=== PATIENT | male | born 1990 | race African-American/Black ===

== ENCOUNTER 2017-06-30 07:49 | Inpatient (IN) | payer SELFPAY ==
[2017-06-30 08:29] LABS: ANION GAP 11 (6-14); BLOOD UREA NITROGEN 13 mg/dL (8-26); BUN/CREATININE RATIO 10 (6-20); CALCIUM 9.8 mg/dL (8.5-10.1); CARBON DIOXIDE 25 mmol/L (21-32); CHLORIDE 101 mmol/L (98-107); CREATININE 1.3 mg/dL (0.7-1.3); GFR 79.5; GLUCOSE 154 mg/dL (70-99); POTASSIUM 3.1 mmol/L (3.5-5.1); SODIUM 137 mmol/L (136-145)
[2017-06-30 08:35] LABS: ALBUMIN 4.2 g/dL (3.4-5.0); ALBUMIN/GLOBULIN RATIO 0.9 (1.0-1.7); ALK PHOS 84 U/L (46-116); ALT (SGPT) 24 U/L (16-63); AST (SGOT) 21 U/L (15-37); LIPASE 168 U/L (73-393); MAGNESIUM 1.5 mg/dL (1.8-2.4); TOTAL BILIRUBIN 0.3 mg/dL (0.2-1.0); TOTAL PROTEIN 8.7 g/dL (6.4-8.2)
[2017-06-30] MEDS: ONDANSETRON PF 4 MG/2 ML VIAL. IV ×2 (08:35→15:45)
[2017-06-30] MEDS: PANTOPRAZOLE IV PUSH 40 MG VIAL. IVP (08:36)
[2017-06-30] MEDS: MORPHINE SULFATE 4 MG/ML DISP.SYRIN. IV/SQ (08:36)
[2017-06-30] MEDS: IV NORMAL SALINE 1000ML BAG 1,000 ML IV ×2 (08:36→11:00)
[2017-06-30 08:39] LABS: TROPONINI < 0.017 ng/mL (0.000-0.055)
[2017-06-30 08:43] LABS: NT-PRO BNP 58 pg/mL (0-124)
[2017-06-30 08:43] LABS: CKMB INDEX 0.2 % (0-4); CKMB MASS 0.5 ng/mL (0.0-3.6); CREATINE KINASE 291 U/L (39-308)
[2017-06-30] MEDS ORDERED: CONTRAST GIVEN MC (09:00)
[2017-06-30] MEDS: IOHEXOL 300 MG/ML 100ML VIAL. IV (09:07)
[2017-06-30] MEDS: POTASSIUM CHLORIDE 20 MEQ TABLET.ER. PO ×2 (09:34→13:48)
[2017-06-30] MEDS: fentaNYL PF VIAL 100 MCG/2 ML VIAL IV ×5 (09:36→23:05)
[2017-06-30 09:49] LABS: BILIRUBIN,URINE NEGATIVE (NEG); CLARITY,URINE CLEAR; COLOR,URINE YELLOW; GLUCOSE,URINE NEGATIVE (NEG); NITRITE,URINE NEGATIVE (NEG); PH,URINE 7.5; PROTEIN,URINE NEGATIVE (NEG-TRACE); UROBILINOGEN,URINE 0.2 mg/dL (0.2 mg/dL)
[2017-06-30 09:53] LABS: ADD MAN DIFF? NO
[2017-06-30 09:55] LABS: BASO % 1 % (0-3); EOS % 0 % (0-3); HEMATOCRIT 45.1 % (39.0-53.0); HEMOGLOBIN 15.4 g/dL (13.0-17.5); LYMPH # 0.8 x10^3/uL (1.0-4.8); LYMPH % 13 % (24-48); MEAN CORPUSCULAR HEMOGLOBIN 33 pg (25-35); MEAN CORPUSCULAR HGB CONC 34 g/dL (31-37); MEAN CORPUSCULAR VOLUME 96 fL (79-100); MONO # 0.3 x10^3/uL (0.0-1.1); MONO % 5 % (0-9); NEUT # 4.7 x10^3uL (1.8-7.7); NEUT % 82 % (31-73); PLATELET COUNT 176 x10^3/uL (140-400); RED CELL DISTRIBUTION WIDTH 12.6 % (11.5-14.5); WHITE BLOOD COUNT 5.7 x10^3/uL (4.0-11.0)
[2017-06-30 09:57] LABS: BACTERIA,URINE 0 /HPF (0-FEW); RBC,URINE 0 /HPF (0-2); SQUAMOUS EPITHELIAL CELL,UR OCC /LPF; WBC,URINE OCC /HPF (0-4)
[2017-06-30 10:01] LABS: BARBITURATES NEG (NEG); BENZODIAZEPINES NEG (NEG); CANNABINOIDS POS (NEG); COCAINE NEG (NEG); METHADONE NEG (NEG); OPIATES POS (NEG); PHENCYCLIDINE NEG (NEG)
[2017-06-30 10:04] LABS: AMPHETAMINE/METHAMPHETAMINE NEG (NEG); ETHANOL, URINE NEG (NEG); INR 1.1 (0.8-1.1); PROTHROMBIN TIME PATIENT 13.7 SEC (11.7-14.0)
[2017-06-30] MEDS: LISINOPRIL 10 MG TABLET PO ×2 (10:48→13:49)
[2017-06-30] MEDS: hydrALAZINE 20 MG/ML VIAL. IVP ×2 (11:39→14:06)
[2017-06-30] MEDS ORDERED: LABETALOL 20 MG/4 ML DISP.SYRIN. IVP (12:00)
[2017-06-30] MEDS: amLODIPine BESYLATE 5 MG TABLET PO (12:00)
[2017-06-30] MEDS: POTASSIUM CL 20MEQ D5-0.45NACL 1,000 ML IV ×2 (12:59→23:05)
[2017-06-30] MEDS: MAGNESIUM SULFATE 2GM 50 ML IV (13:48)
[2017-06-30 14:00] LABS: CHOLESTEROL 126 mg/dL (0-200); HDLC 36 mg/dL (40-60); LDLC 74 mg/dL (0-100); NON-HDL CHOLESTEROL 90 mg/dL (0-129); TRIGLYCERIDES 81 mg/dL (0-150); VLDLC 16 mg/dL (0-40)
[2017-06-30 14:05] LABS: CHOLESTEROL/HDL RATIO 3.5
[2017-07-01] MEDS: fentaNYL PF VIAL 100 MCG/2 ML VIAL IV ×5 (02:03→20:59)
[2017-07-01] MEDS: ONDANSETRON PF 4 MG/2 ML VIAL. IV ×2 (02:09→14:51)
[2017-07-01 07:11] LABS: BASO % 0 % (0-3); EOS % 0 % (0-3); HEMATOCRIT 46.3 % (39.0-53.0); HEMOGLOBIN 16.1 g/dL (13.0-17.5); LYMPH # 0.7 x10^3/uL (1.0-4.8); LYMPH % 9 % (24-48); MEAN CORPUSCULAR HEMOGLOBIN 33 pg (25-35); MEAN CORPUSCULAR HGB CONC 35 g/dL (31-37); MEAN CORPUSCULAR VOLUME 95 fL (79-100); MONO # 0.4 x10^3/uL (0.0-1.1); MONO % 5 % (0-9); NEUT # 7.4 x10^3uL (1.8-7.7); NEUT % 86 % (31-73); PLATELET COUNT 187 x10^3/uL (140-400); RED BLOOD COUNT 4.87 x10^6/uL (4.30-5.70); RED CELL DISTRIBUTION WIDTH 13.2 % (11.5-14.5); WHITE BLOOD COUNT 8.5 x10^3/uL (4.0-11.0)
[2017-07-01 07:14] LABS: ADD MAN DIFF? YES
[2017-07-01 07:34] LABS: ALBUMIN 4.2 g/dL (3.4-5.0); ALBUMIN/GLOBULIN RATIO 0.9 (1.0-1.7); ALK PHOS 74 U/L (46-116); ALT (SGPT) 22 U/L (16-63); AMYLASE 107 U/L (25-115); ANION GAP 10 (6-14); AST (SGOT) 17 U/L (15-37); BLOOD UREA NITROGEN 7 mg/dL (8-26); BUN/CREATININE RATIO 8 (6-20); CALCIUM 9.1 mg/dL (8.5-10.1); CARBON DIOXIDE 26 mmol/L (21-32); CHLORIDE 99 mmol/L (98-107); CREATININE 0.9 mg/dL (0.7-1.3); GFR 121.6; GLUCOSE 133 mg/dL (70-99); LIPASE 264 U/L (73-393); POTASSIUM 4.2 mmol/L (3.5-5.1); SODIUM 135 mmol/L (136-145); TOTAL BILIRUBIN 0.4 mg/dL (0.2-1.0); TOTAL PROTEIN 9.1 g/dL (6.4-8.2)
[2017-07-01] MEDS: PANTOPRAZOLE IV PUSH 40 MG VIAL. IVP (08:06)
[2017-07-01] MEDS: POTASSIUM CL 20MEQ D5-0.45NACL 1,000 ML IV ×3 (08:07→20:58)
[2017-07-01] MEDS: amLODIPine BESYLATE 5 MG TABLET PO (09:00)
[2017-07-01] MEDS: LISINOPRIL 20 MG TABLET PO (09:00)
[2017-07-01] MEDS: KETOROLAC 30 MG/ML INJ. IV (09:29)
[2017-07-01 11:20] LABS: % LYMPHS 8 % (24-48); % MONOS 5 % (0-10); % SEGS 87 % (35-66); PLT ESTIMATE ADEQUATE (ADEQUATE)
[2017-07-01] MEDS ORDERED: oxyCODONE/APAP 5/325 1 TAB TABLET PO (13:15)
[2017-07-01] MEDS ORDERED: fentaNYL PF VIAL 100 MCG/2 ML VIAL IV (13:15)
[2017-07-01] MEDS: hydrALAZINE 20 MG/ML VIAL. IVP (14:53)
[2017-07-02] MEDS: fentaNYL PF VIAL 100 MCG/2 ML VIAL IV ×2 (00:52→05:38)
[2017-07-02] MEDS: POTASSIUM CL 20MEQ D5-0.45NACL 1,000 ML IV ×2 (05:39→12:00)
[2017-07-02] MEDS: PANTOPRAZOLE 40 MG TABLET.DR. PO (09:44)
[2017-07-02] MEDS: POLYETHYLENE GLYCOL 3350 17 GM PACKET. PO (09:45)
[2017-07-02] MEDS: amLODIPine BESYLATE 5 MG TABLET PO (09:45)
[2017-07-02] MEDS: LISINOPRIL 20 MG TABLET PO (09:45)
== END 2017-07-02 17:21 | disposition home or self-care (01) | DRG 392 ==
LOC: ER 07:49 → 6 SOUTH 10:50
DX: R10.9 Unspecified abdominal pain (principal); E83.42 Hypomagnesemia; E87.6 Hypokalemia; F12.90 Cannabis use, unspecified, uncomplicated; I10 Essential (primary) hypertension; K21.9 Gastro-esophageal reflux disease without esophagitis; G89.29 Other chronic pain; E66.9 Obesity, unspecified; R94.31 Abnormal electrocardiogram [ECG] [EKG]; T40.4X5A Adverse effect of other synthetic narcotics, initial encounter; Z79.899 Other long term (current) drug therapy; Z82.49 Family history of ischemic heart disease and other diseases of the circulatory system; Z90.49 Acquired absence of other specified parts of digestive tract; Z68.30 Body mass index [BMI] 30.0-30.9, adult; Z86.718 Personal history of other venous thrombosis and embolism; Z79.01 Long term (current) use of anticoagulants; Y92.89 Other specified places as the place of occurrence of the external cause
CPT/HCPCS: 36415; 71045; 74177; 76700; 78264; 80053; 80061; 80307; 81001; 82150; 82553; 83690; 83735; 83880; 84443; 84484; 85007; 85025; 85610; 93005; 93306; 96361; 96374; 96375; 99285; 99285-25; A9541; C9113; J0360; J1885; J2270; J2405; J3010; J3475; J7030; Q9967

== ENCOUNTER 2017-12-24 10:30 | Emergency (ER) | payer SELFPAY ==
[~2017-12-24] VITALS: Ht 182.9 cm; Wt 92.1 kg
[~2017-12-24 10:30] MED LIST: AMLO5TAB7 PO; LISI10TA2 PO; POLY17PO29 PO
[2017-12-24] MEDS ORDERED: FAMOTIDINE 20 MG/2 ML VIAL IVP ONE (11:00)
[2017-12-24] MEDS ORDERED: MECLIZINE HCL 12.5 MG TABLET. PO ONE (11:00)
[2017-12-24] MEDS ORDERED: ONDANSETRON PF 4 MG/2 ML VIAL. IV ONE (11:00)
[2017-12-24] MEDS ORDERED: IV NORMAL SALINE 1000ML BAG 1,000 ML IV ONE (11:00)
[2017-12-24] MEDS ORDERED: DICYCLOMINE HCL 10 MG CAPSULE PO ONE (11:00)
[2017-12-24 11:13] LABS: BASO % 1 % (0-3); EOS % 0 % (0-3); HEMATOCRIT 40.4 % (39.0-53.0); HEMOGLOBIN 14.2 g/dL (13.0-17.5); LYMPH # 0.7 x10^3/uL (1.0-4.8); LYMPH % 16 % (24-48); MEAN CORPUSCULAR HEMOGLOBIN 33 pg (25-35); MEAN CORPUSCULAR HGB CONC 35 g/dL (31-37); MEAN CORPUSCULAR VOLUME 94 fL (79-100); MONO # 0.5 x10^3/uL (0.0-1.1); MONO % 12 % (0-9); NEUT # 2.9 x10^3uL (1.8-7.7); NEUT % 71 % (31-73); PLATELET COUNT 133 x10^3/uL (140-400); RED CELL DISTRIBUTION WIDTH 13.2 % (11.5-14.5)
[2017-12-24 11:23] LABS: CALCIUM 8.7 mg/dL (8.5-10.1); GFR 106.9; POTASSIUM 4.2 mmol/L (3.5-5.1)
[2017-12-24 11:29] LABS: ALBUMIN 3.8 g/dL (3.4-5.0); ALBUMIN/GLOBULIN RATIO 0.8 (1.0-1.7); TOTAL BILIRUBIN 0.2 mg/dL (0.2-1.0); TOTAL PROTEIN 8.4 g/dL (6.4-8.2)
--- NOTE | 2017-12-24 11:43 | RAD ---
Acute abdomen series with chest, 3 views, 12/24/2017: HISTORY: Headache, cough, nausea, chest pain The abdominal gas pattern is unremarkable without evidence of obstruction. No free air is present in the abdomen. Surgical clips are present in the right upper quadrant. No abnormal abdominal calcifications are seen. The heart size is normal. The lungs are clear. There is no evidence of pleural fluid. IMPRESSION: No acute abnormality is detected. Electronically signed by: Rupesh Vasquez MD (12/24/2017 11:40 AM) [facility]
--- NOTE | 2017-12-24 11:58 | PHYS DOC ---
Past Medical History Past Medical History: Constipation, DVT, Hypertension Past Surgical History: Cholecystectomy Alcohol Use: Occasionally Drug Use: Marijuana Adult General Chief Complaint Chief Complaint: DIZZY/LIGHT HEADED HPI HPI Patient is a 27 year old male with history of hypertension, constipation, DVT on the left lower extremity from a sports injury, who presents today complaining of dizziness worse when is moving around and stomach cramps that began 3 days ago. Patient is also complaining of intermittent episodes of chills. Denies fever. Denies any nausea vomiting. Denies any diarrhea. Denies any chance he is constipated. Review of Systems Review of Systems Constitutional: Denies fever or chills [] Eyes: Denies change in visual acuity, redness, or eye pain [] HENT: Denies nasal congestion or sore throat [] Respiratory: Denies cough or shortness of breath [] Cardiovascular: No additional information not addressed in HPI [] GI: Reports abdominal cramping, denies nausea, vomiting, bloody stools or diarrhea [] : Denies dysuria or hematuria [] Musculoskeletal: Denies back pain or joint pain [] Integument: Denies rash or skin lesions [] Neurologic: Reports dizziness. Denies headache, focal weakness or sensory changes [] All other systems were reviewed and found to be within normal limits, except as documented in this note. Current Medications Current Medications Current Medications Medications (Trade) Dose Ordered Sig/Sanaz Start Time Stop Time Status Last Admin Dose Admin Clonidine HCl (Catapres) 0.2 mg 1X ONCE 12/24/17 13:00 12/24/17 13:01 DC Dicyclomine HCl (Bentyl) 20 mg 1X ONCE 12/24/17 11:00 12/24/17 11:01 DC 12/24/17 11:56 20 MG Famotidine (Pepcid Vial) 20 mg 1X ONCE 12/24/17 11:00 12/24/17 11:01 DC 12/24/17 11:55 20 MG Meclizine HCl (Antivert) 25 mg 1X ONCE 12/24/17 11:00 12/24/17 11:01 DC 12/24/17 11:57 25 MG Ondansetron HCl (Zofran) 4 mg 1X ONCE 12/24/17 11:00 12/24/17 11:01 DC 12/24/17 11:54 4 MG Sodium Chloride 1,000 ml @ 1,000 mls/hr 1X ONCE 12/24/17 11:00 12/24/17 11:59 DC 12/24/17 11:53 1,000 MLS/HR Allergies Allergies Allergies Coded Allergies Type Severity Reaction Last Updated Verified No Known Drug Allergies 02/25/17 No Physical Exam Physical Exam Constitutional: Well developed, well nourished, no acute distress, non-toxic appearance. [] HENT: Normocephalic, atraumatic, bilateral external ears normal, oropharynx moist, no oral exudates, nose normal. [] Eyes: PERRLA, EOMI, conjunctiva normal, no discharge. [] Neck: Normal range of motion, no tenderness, supple, no stridor. [] Cardiovascular:Heart rate regular rhythm, no murmur [] Lungs & Thorax: Bilateral breath sounds clear to auscultation [] Abdomen: Bowel sounds normal, soft, no tenderness, no masses, no pulsatile masses. [] Skin: Warm, dry, no erythema, no rash. [] Back: No tenderness, no CVA tenderness. [] Extremities: No tenderness, no cyanosis, no clubbing, ROM intact, no edema. [] Neurologic: Alert and oriented X 3, normal motor function, normal sensory function, no focal deficits noted. Cranial nerves II through XII intact Psychologic: Affect normal, judgement normal, mood normal. [] Current Patient Data Vital Signs Vital Signs Date Time Temp Pulse Resp B/P (MAP) Pulse Ox O2 Delivery O2 Flow Rate FiO2 12/24/17 10:50 98.8 88 12 166/108 (127) 96 Room Air 98.8 Lab Values Laboratory Tests Test 12/24/17 11:04 12/24/17 12:30 White Blood Count 4.0 x10^3/uL (4.0-11.0) Red Blood Count 4.30 x10^6/uL (4.30-5.70) Hemoglobin 14.2 g/dL (13.0-17.5) Hematocrit 40.4 % (39.0-53.0) Mean Corpuscular Volume 94 fL (79-100) Mean Corpuscular Hemoglobin 33 pg (25-35) Mean Corpuscular Hemoglobin Concent 35 g/dL (31-37) Red Cell Distribution Width 13.2 % (11.5-14.5) Platelet Count 133 x10^3/uL (140-400) L Neutrophils (%) (Auto) 71 % (31-73) Lymphocytes (%) (Auto) 16 % (24-48) L Monocytes (%) (Auto) 12 % (0-9) H Eosinophils (%) (Auto) 0 % (0-3) Basophils (%) (Auto) 1 % (0-3) Neutrophils # (Auto) 2.9 x10^3uL (1.8-7.7) Lymphocytes # (Auto) 0.7 x10^3/uL (1.0-4.8) L Monocytes # (Auto) 0.5 x10^3/uL (0.0-1.1) Eosinophils # (Auto) 0.0 x10^3/uL (0.0-0.7) Basophils # (Auto) 0.0 x10^3/uL (0.0-0.2) Sodium Level 140 mmol/L (136-145) Potassium Level 4.2 mmol/L (3.5-5.1) Chloride Level 104 mmol/L (98-107) Carbon Dioxide Level 27 mmol/L (21-32) Anion Gap 9 (6-14) Blood Urea Nitrogen 8 mg/dL (8-26) Creatinine 1.0 mg/dL (0.7-1.3) Estimated GFR (Cockcroft-Gault) 106.9 BUN/Creatinine Ratio 8 (6-20) Glucose Level 94 mg/dL (70-99) Calcium Level 8.7 mg/dL (8.5-10.1) Total Bilirubin 0.2 mg/dL (0.2-1.0) Aspartate Amino Transferase (AST) 21 U/L (15-37) Alanine Aminotransferase (ALT) 34 U/L (16-63) Alkaline Phosphatase 81 U/L (46-116) Troponin I Quantitative < 0.017 ng/mL (0.000-0.055) Total Protein 8.4 g/dL (6.4-8.2) H Albumin 3.8 g/dL (3.4-5.0) Albumin/Globulin Ratio 0.8 (1.0-1.7) L Lipase 225 U/L (73-393) Urine Collection Type Unknown Urine Color Yellow Urine Clarity Clear Urine pH 6.5 Urine Specific [place] 1.020 Urine Protein Negative mg/dL (NEG-TRACE) Urine Glucose (UA) Negative mg/dL (NEG) Urine Ketones (Stick) Negative mg/dL (NEG) Urine Blood Negative (NEG) Urine Nitrite Negative (NEG) Urine Bilirubin Negative (NEG) Urine Urobilinogen Dipstick 0.2 mg/dL (0.2 mg/dL) Urine Leukocyte Esterase Negative (NEG) Urine RBC 1-2 /HPF (0-2) Urine WBC Occ /HPF (0-4) Urine Squamous Epithelial Cells Occ /LPF Urine Bacteria 0 /HPF (0-FEW) Urine Mucus Mod /LPF Urine Opiates Screen Neg (NEG) Urine Methadone Screen Neg (NEG) Urine Barbiturates Neg (NEG) Urine Phencyclidine Screen Neg (NEG) Urine Amphetamine/Methamphetamine Neg (NEG) Urine Benzodiazepines Screen Neg (NEG) Urine Cocaine Screen Neg (NEG) Urine Cannabinoids Screen Pos (NEG) Urine Ethyl Alcohol Neg (NEG) Laboratory Tests 12/24/17 11:04 Laboratory Tests 12/24/17 11:04 EKG EKG 11:[address] Terrazas sinus rhythm HR 75 no STEMI [] Radiology/Procedures Radiology/Procedures []PROCEDURE: ACUTE ABDOMEN SERIES Acute abdomen series with chest, 3 views, 12/24/2017: HISTORY: Headache, cough, nausea, chest pain The abdominal gas pattern is unremarkable without evidence of obstruction. No free air is present in the abdomen. Surgical clips are present in the right upper quadrant. No abnormal abdominal calcifications are seen. The heart size is normal. The lungs are clear. There is no evidence of pleural fluid. IMPRESSION: No acute abnormality is detected. Electronically signed by: Rupesh Vasquez MD (12/24/2017 11:40 AM) [facility] DICTATED and SIGNED BY: RUPESH VASQUEZ MD DATE: 12/24/17 6674 Course & Med Decision Making Course & Med Decision Making Pertinent Labs and Imaging studies reviewed. (See chart for details) This is a 27-year-old male patient presenting to the ED today with complaints of dizziness, abdominal cramping and chills that began 3 days ago. CBC with normal WBC, CMP would not acute findings. EKG was negative, troponin is normal, acute abdominal series normal. UA negative. + for marijuana use. Blood pressure was running high at 166/108 on arrival with a heart rate of 88, patient has history of hypertension, he states he took his lisinopril this morning. Clonidine was ordered in the ED. IV fluids were given, meclizine patient feeling better. Discharged with instructions to follow-up with the PCP as soon as he can. Discharged with dicyclomine and meclizine. Dragon Disclaimer Dragon Disclaimer This electronic medical record was generated, in whole or in part, using a voice recognition dictation system. Departure Departure Impression: Primary Impression: Chronic generalized abdominal pain Additional Impressions: Accelerated hypertension Dizziness Disposition: HOME, SELF-CARE Condition: STABLE Referrals: NO PCP (PCP) LJ PAINTER MD follow up in 1 week Patient Instructions: Abdominal Pain (Nonspecific), Dizziness, [id number], Hypertension Additional Instructions: You were evaluated in the emergency room, please take the prescribed medications as ordered. Follow-up with your doctor in 1-2 weeks. Push fluids. Rest. Come back to the ED at any point symptoms. Scripts Ondansetron (ZOFRAN ODT) 4 Mg Tab.rapdis 1 TAB SL Q8HRS, #15 TAB Prov: ABIMBOLA BRYSON APRN 12/24/17 Dicyclomine Hcl (DICYCLOMINE HCL) 20 Mg Tablet 1 TAB PO TID, #30 TAB 1 Refill Prov: ABIMBOLA BRYSON APRN 12/24/17 Problem Qualifiers ABIMBOLA BRYSON APRN Dec 24, 2017 11:58
[2017-12-24 12:42] LABS: BILIRUBIN,URINE NEGATIVE (NEG); CLARITY,URINE CLEAR; COLOR,URINE YELLOW; NITRITE,URINE NEGATIVE (NEG); PH,URINE 6.5; PROTEIN,URINE NEGATIVE (NEG-TRACE); UROBILINOGEN,URINE 0.2 mg/dL (0.2 mg/dL)
[2017-12-24 12:51] LABS: BARBITURATES NEG (NEG); BENZODIAZEPINES NEG (NEG); CANNABINOIDS POS (NEG); COCAINE NEG (NEG); METHADONE NEG (NEG); OPIATES NEG (NEG); PHENCYCLIDINE NEG (NEG)
[2017-12-24 12:54] LABS: AMPHETAMINE/METHAMPHETAMINE NEG (NEG)
[2017-12-24 12:58] LABS: BACTERIA,URINE 0 /HPF (0-FEW); SQUAMOUS EPITHELIAL CELL,UR OCC /LPF; WBC,URINE OCC /HPF (0-4)
[2017-12-24] MEDS ORDERED: cloNIDine HCL 0.1 MG TABLET PO ONE (13:00)
[2017-12-24] MEDS ORDERED: DICY20TA3 PO (13:12)
[2017-12-24] MEDS ORDERED: ONDA4TAB10 SL (13:12)
[2017-12-24 13:35] VITALS: BP 137/71
--- NOTE | 2017-12-24 16:32 | EKG ---
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
== END 2017-12-24 13:47 | disposition home or self-care (01) ==
LOC: ER 10:30
DX: G89.29 Other chronic pain (principal); R10.84 Generalized abdominal pain; R42 Dizziness and giddiness; I10 Essential (primary) hypertension; Z86.718 Personal history of other venous thrombosis and embolism; Z90.49 Acquired absence of other specified parts of digestive tract
CPT/HCPCS: 36415; 74022; 80053; 80307; 81001; 83690; 84484; 85025; 93005; 96361; 96374; 96375; 99285; J2405; J3490; J7030; J8597; G0479

== ENCOUNTER 2018-01-16 17:15 | Emergency (ER) | payer SELFPAY ==
[~2018-01-16] VITALS: Ht 172.7 cm; Wt 90.7 kg
[~2018-01-16 17:15] MED LIST changes: +DICY20TA3 PO; +ONDA4TAB10 SL
[2018-01-16 17:20] VITALS: BP 194/112
[2018-01-16] MEDS ORDERED: IV NORMAL SALINE 1000ML BAG 1,000 ML IV ONE ×2 (17:45→20:15)
[2018-01-16] MEDS ORDERED: FAMOTIDINE 20 MG/2 ML VIAL IVP ONE (17:45)
[2018-01-16] MEDS ORDERED: CONTRAST GIVEN. MC PRN (18:00)
--- NOTE | 2018-01-16 18:14 | PHYS DOC ---
Past Medical History Past Medical History: Constipation, DVT, Hypertension Past Surgical History: Cholecystectomy Alcohol Use: Occasionally Drug Use: Marijuana Adult General Chief Complaint Chief Complaint: ABDOMINAL PAIN HPI HPI Patient is a 27 year old male who presents with upper abdominal pain, nausea, vomiting since today after he ate a fried pork chop. Patient states that it is mid abdominal pain that is burning. Rates his pain a 10/10. Pmh is hypertension of which he takes lisinopril for. Patient's mother states that she gave him his medication today but she thinks he threw it up. Review of Systems Review of Systems Constitutional: Denies fever or chills [] Eyes: Denies change in visual acuity, redness, or eye pain [] HENT: Denies nasal congestion or sore throat [] Respiratory: Denies cough or shortness of breath [] Cardiovascular: No additional information not addressed in HPI [] GI: Generalized burning abdominal pain, nausea, vomiting, and constipation. Denies bloody stools or diarrhea [] : Denies dysuria or hematuria [] Musculoskeletal: Denies back pain or joint pain [] Integument: Denies rash or skin lesions [] Neurologic: Denies headache, focal weakness or sensory changes [] Endocrine: Denies polyuria or polydipsia [] All other systems were reviewed and found to be within normal limits, except as documented in this note. Current Medications Current Medications Current Medications Medications (Trade) Dose Ordered Sig/Sanaz Start Time Stop Time Status Last Admin Dose Admin Famotidine (Pepcid Vial) 20 mg 1X ONCE 01/16/18 17:45 01/16/18 17:46 DC 01/16/18 18:20 20 MG Fentanyl Citrate (Fentanyl 2ml Vial) 50 mcg 1X ONCE 01/16/18 20:45 01/16/18 20:46 DC 01/16/18 20:38 50 MCG Info (CONTRAST GIVEN -- Rx MONITORING) 1 each PRN DAILY PRN 01/16/18 18:00 01/18/18 17:59 Iohexol (Omnipaque 300 Mg/ml) 75 ml 1X ONCE 01/16/18 18:15 01/16/18 18:16 DC 01/16/18 18:15 75 ML Ondansetron HCl (Zofran) 4 mg 1X ONCE 01/16/18 19:30 01/16/18 19:31 DC Sodium Chloride 1,000 ml @ 1,000 mls/hr 1X ONCE 01/16/18 20:15 01/16/18 21:14 01/16/18 20:37 1,000 MLS/HR Allergies Allergies Allergies Coded Allergies Type Severity Reaction Last Updated Verified No Known Drug Allergies 02/25/17 No Physical Exam Physical Exam Constitutional: Well developed, well nourished, no acute distress, non-toxic appearance. [] HENT: Normocephalic, atraumatic, bilateral external ears normal, oropharynx moist, no oral exudates, nose normal. [] Eyes: PERRLA, EOMI, conjunctiva normal, no discharge. [] Neck: Normal range of motion, no tenderness, supple, no stridor. [] Cardiovascular:Heart rate regular rhythm, no murmur [] Lungs & Thorax: Bilateral breath sounds clear to auscultation [] Abdomen: Bowel sounds normal, soft, generalized tenderness, no masses, no pulsatile masses. [] Skin: Warm, dry, no erythema, no rash. [] Back: No tenderness, no CVA tenderness. [] Extremities: No tenderness, no cyanosis, no clubbing, ROM intact, no edema. [] Neurologic: Alert and oriented X 3, normal motor function, normal sensory function, no focal deficits noted. [] Psychologic: Affect normal, judgement normal, mood normal. [] Current Patient Data Vital Signs Vital Signs Date Time Temp Pulse Resp B/P (MAP) Pulse Ox O2 Delivery O2 Flow Rate FiO2 01/16/18 18:50 16 97 Room Air 01/16/18 17:20 98.2 60 194/112 (139) 98.2 Lab Values Laboratory Tests Test 01/16/18 18:30 01/16/18 19:30 White Blood Count 7.7 x10^3/uL (4.0-11.0) Red Blood Count 4.74 x10^6/uL (4.30-5.70) Hemoglobin 15.5 g/dL (13.0-17.5) Hematocrit 43.7 % (39.0-53.0) Mean Corpuscular Volume 92 fL (79-100) Mean Corpuscular Hemoglobin 33 pg (25-35) Mean Corpuscular Hemoglobin Concent 35 g/dL (31-37) Red Cell Distribution Width 12.7 % (11.5-14.5) Platelet Count 205 x10^3/uL (140-400) Neutrophils (%) (Auto) 87 % (31-73) H Lymphocytes (%) (Auto) 8 % (24-48) L Monocytes (%) (Auto) 4 % (0-9) Eosinophils (%) (Auto) 0 % (0-3) Basophils (%) (Auto) 0 % (0-3) Neutrophils # (Auto) 6.7 x10^3uL (1.8-7.7) Lymphocytes # (Auto) 0.6 x10^3/uL (1.0-4.8) L Monocytes # (Auto) 0.3 x10^3/uL (0.0-1.1) Eosinophils # (Auto) 0.0 x10^3/uL (0.0-0.7) Basophils # (Auto) 0.0 x10^3/uL (0.0-0.2) Segmented Neutrophils % 80 % (35-66) H Band Neutrophils % 3 % (0-9) Lymphocytes % 10 % (24-48) L Monocytes % 7 % (0-10) Platelet Estimate Adequate (ADEQUATE) Sodium Level 140 mmol/L (136-145) Potassium Level 3.6 mmol/L (3.5-5.1) Chloride Level 103 mmol/L (98-107) Carbon Dioxide Level 24 mmol/L (21-32) Anion Gap 13 (6-14) Blood Urea Nitrogen 11 mg/dL (8-26) Creatinine 1.1 mg/dL (0.7-1.3) Estimated GFR (Cockcroft-Gault) 95.8 BUN/Creatinine Ratio 10 (6-20) Glucose Level 161 mg/dL (70-99) H Calcium Level 9.3 mg/dL (8.5-10.1) Total Bilirubin 0.4 mg/dL (0.2-1.0) Aspartate Amino Transferase (AST) 19 U/L (15-37) Alanine Aminotransferase (ALT) 24 U/L (16-63) Alkaline Phosphatase 69 U/L (46-116) Troponin I Quantitative < 0.017 ng/mL (0.000-0.055) Total Protein 8.8 g/dL (6.4-8.2) H Albumin 4.0 g/dL (3.4-5.0) Albumin/Globulin Ratio 0.8 (1.0-1.7) L Lipase 94 U/L (73-393) Urine Collection Type Unknown Urine Color Yellow Urine Clarity Clear Urine pH 7.5 Urine Specific [place] >=1.030 Urine Protein 100 mg/dL (NEG-TRACE) Urine Glucose (UA) 100 mg/dL (NEG) Urine Ketones (Stick) >=80 mg/dL (NEG) Urine Blood Negative (NEG) Urine Nitrite Negative (NEG) Urine Bilirubin Negative (NEG) Urine Urobilinogen Dipstick 0.2 mg/dL (0.2 mg/dL) Urine Leukocyte Esterase Negative (NEG) Urine RBC 6-10 /HPF (0-2) Urine WBC 1-4 /HPF (0-4) Urine Transitional Epithelial Cells Occ /LPF Urine Bacteria 0 /HPF (0-FEW) Urine Mucus Marked /LPF Urine Opiates Screen Neg (NEG) Urine Methadone Screen Neg (NEG) Urine Barbiturates Neg (NEG) Urine Phencyclidine Screen Neg (NEG) Urine Amphetamine/Methamphetamine Neg (NEG) Urine Benzodiazepines Screen Neg (NEG) Urine Cocaine Screen Neg (NEG) Urine Cannabinoids Screen Pos (NEG) Urine Ethyl Alcohol Neg (NEG) Laboratory Tests 01/16/18 18:30 Laboratory Tests 01/16/18 18:30 EKG EKG Sinus Rhythm, no STEMI Interpretation Time: 1749 Radiology/Procedures Radiology/Procedures CT abdomen pelvis[] Impressions: [facility] [address] [place] [address] IMAGING REPORT Signed PATIENT: BRISA DONAHUE ACCOUNT: [id number] : 1990 LOCATION: ER AGE: 27 SEX: M EXAM STATUS: REG ER ORD. PHYSICIAN: BRANDI PARTIDA APRN REASON: GENERALIZED ABDOMINAL PAIN, [place], VOMITING, CONSTIPATION PROCEDURE: CT ABD PELV W/ IV CONTRST ONLY Exam performed: CT scan of the abdomen and pelvis with contrast Clinical Indication: Abdominal pain and constipation with vomiting Date of Service: 01/16/2018 no priors Technique: Contiguous helical acquisitions are obtained from the lung bases to the pelvis during intravenous administration of [75 cc of Omnipaque 300]. In addition oral contrast was also given. Sagittal and coronal reformatted images were obtained and reviewed. CT abdomen findings: The lung bases appear essentially clear. Visualized heart is normal The liver, spleen and pancreas appears unremarkable. Cholecystectomy. Both adrenal glands and bilateral kidneys appear normal with symmetric excretion of contrast via both kidneys. The small bowel loops appear nondilated and unremarkable. Aorta is normal in caliber. There is no retroperitoneal lymphadenopathy or mass lesions. No bowel related inflammatory stranding is noted. No obvious stranding is seen in the pericecal region. CT pelvis findings: The pelvic bowel loops are nondilated and unremarkable. The urinary bladder is well distended and normal . Prostate gland and seminal vesicles appears normal. Interrogation of bone windows demonstrates no obvious bony abnormality. Sagittal and coronal reformatted images were obtained and reviewed which demonstrate no additional findings. Impression abdomen and pelvis : 1. No acute intra-abdominal or pelvic process is detected. PQRS Compliance Statement: One or more of the following individualized dose reduction techniques were utilized for this examination: 1. Automated exposure control 2. Adjustment of the mA and/or kV according to patient size 3. Use of iterative reconstruction technique Electronically signed by: Hollie Lucio MD (01/16/2018 9:00 PM) [facility] DICTATED and SIGNED BY: HOLLIE LUCIO MD DATE: 01/16/182054 Course & Med Decision Making Course & Med Decision Making Patient is a 27 year old male who presents with upper abdominal pain, nausea, vomiting since today after he ate a fried pork chop. Patient states that it is mid abdominal pain that is burning. Rates his pain a 10/10. Pmh is hypertension of which he takes lisinopril for. Patient's mother states that she gave him his medication today but she thinks he threw it up. There is no blood in his vomit only bile. Patient is asked questions he does not speak he will shake his head but mother answers all questions for him. Mother states the patient takes only lisinopril and has no known drug allergies. Patient doesn't do any drinking or smoke cigarettes but does smoke marijuana. Patient mother states that the patient has constipation and this a.m. he had a bowel movement but was hard and he had to push it out. Patient states he has dysuria symptoms. Abdomen is soft with generalized tenderness. Lungs are clear to auscultation in all lobes and heart rate is regular without murmur. Blood pressure is 194/112. He is alert and oriented. Skin is pink warm and dry. No extremity swelling. Patient is given a normal saline bolus, Zofran, Pepcid, fentanyl in the ED. 1914: Patient vomiting green bile again is given another 4 mg of Zofran. Blood work is unremarkable. 2106: CT ABD PELV shows no acute findings. Patient will be discharged with gastritis. He will get a prescription for Pepcid and ondansetron. Dragon Disclaimer Dragon Disclaimer This electronic medical record was generated, in whole or in part, using a voice recognition dictation system. Departure Departure Impression: Primary Impression: Gastritis Disposition: HOME, SELF-CARE Condition: STABLE Referrals: NO PCP (PCP) Patient Instructions: Gastritis, Adult Additional Instructions: Take Medications as directed. Follow up with your primary care. Do not eat heavy or greasy foods. Eat soft non spicy or fried foods and slowly increase your diet to solid foods. Scripts Sucralfate (CARAFATE) 1 Gm Tablet 1 GM PO TID for 7 Days, #21 TAB Prov: BRANDI PARTIDA VP CLIENT SERVICES 01/16/18 Famotidine (PEPCID) 20 Mg Tablet 20 MG PO BID for 7 Days, #14 TAB Prov: BRANDI PARTIDA APRN 01/16/18 Ondansetron (ONDANSETRON ODT) 4 Mg Tab.rapdis 1 TAB PO PRN Q6-8HRS, #16 TAB Prov: BRANDI PARTIDA APRN 01/16/18 Problem Qualifiers Primary Impression: Gastritis Gastritis type: unspecified gastritis Chronicity: acute Gastritis bleeding : without bleeding Qualified Codes: K29.00 - Acute gastritis without bleeding BRANDI PARTIDA VP CLIENT SERVICES Jan 16, 2018 18:14
[2018-01-16] MEDS ORDERED: fentaNYL PF VIAL 100 MCG/2 ML VIAL IV ONE ×2 (18:15→20:45)
[2018-01-16] MEDS ORDERED: ONDANSETRON PF 4 MG/2 ML VIAL. IV ONE ×3 (18:15→19:30)
[2018-01-16] MEDS ORDERED: IOHEXOL 300 MG/ML 100ML VIAL. IV ONE (18:15)
[2018-01-16 18:50] LABS: CALCIUM 9.3 mg/dL (8.5-10.1); CREATININE 1.1 mg/dL (0.7-1.3); GFR 95.8; POTASSIUM 3.6 mmol/L (3.5-5.1)
[2018-01-16 18:52] LABS: BASO % 0 % (0-3); EOS % 0 % (0-3); HEMATOCRIT 43.7 % (39.0-53.0); HEMOGLOBIN 15.5 g/dL (13.0-17.5); LYMPH # 0.6 x10^3/uL (1.0-4.8); LYMPH % 8 % (24-48); MEAN CORPUSCULAR HEMOGLOBIN 33 pg (25-35); MEAN CORPUSCULAR HGB CONC 35 g/dL (31-37); MEAN CORPUSCULAR VOLUME 92 fL (79-100); MONO # 0.3 x10^3/uL (0.0-1.1); MONO % 4 % (0-9); NEUT # 6.7 x10^3uL (1.8-7.7); NEUT % 87 % (31-73); PLATELET COUNT 205 x10^3/uL (140-400); RED BLOOD COUNT 4.74 x10^6/uL (4.30-5.70); RED CELL DISTRIBUTION WIDTH 12.7 % (11.5-14.5); WHITE BLOOD COUNT 7.7 x10^3/uL (4.0-11.0)
[2018-01-16 18:56] LABS: ALBUMIN/GLOBULIN RATIO 0.8 (1.0-1.7); TOTAL BILIRUBIN 0.4 mg/dL (0.2-1.0); TOTAL PROTEIN 8.8 g/dL (6.4-8.2)
[2018-01-16 19:39] LABS: BILIRUBIN,URINE NEGATIVE (NEG); CLARITY,URINE CLEAR; COLOR,URINE YELLOW; NITRITE,URINE NEGATIVE (NEG); PH,URINE 7.5; PROTEIN,URINE 100 mg/dL (NEG-TRACE); UROBILINOGEN,URINE 0.2 mg/dL (0.2 mg/dL)
[2018-01-16 19:46] LABS: AMPHETAMINE/METHAMPHETAMINE NEG (NEG); BARBITURATES NEG (NEG); BENZODIAZEPINES NEG (NEG); CANNABINOIDS POS (NEG); COCAINE NEG (NEG); METHADONE NEG (NEG); OPIATES NEG (NEG); PHENCYCLIDINE NEG (NEG)
[2018-01-16 19:51] LABS: BACTERIA,URINE 0 /HPF (0-FEW)
[2018-01-16 19:55] LABS: % BANDS 3 % (0-9); % LYMPHS 10 % (24-48); % MONOS 7 % (0-10); % SEGS 80 % (35-66); PLT ESTIMATE ADEQUATE (ADEQUATE)
--- NOTE | 2018-01-16 21:03 | RAD ---
Exam performed: CT scan of the abdomen and pelvis with contrast Clinical Indication: Abdominal pain and constipation with vomiting Date of Service: 01/16/2018 no priors Technique: Contiguous helical acquisitions are obtained from the lung bases to the pelvis during intravenous administration of [75 cc of Omnipaque 300]. In addition oral contrast was also given. Sagittal and coronal reformatted images were obtained and reviewed. CT abdomen findings: The lung bases appear essentially clear. Visualized heart is normal The liver, spleen and pancreas appears unremarkable. Cholecystectomy. Both adrenal glands and bilateral kidneys appear normal with symmetric excretion of contrast via both kidneys. The small bowel loops appear nondilated and unremarkable. Aorta is normal in caliber. There is no retroperitoneal lymphadenopathy or mass lesions. No bowel related inflammatory stranding is noted. No obvious stranding is seen in the pericecal region. CT pelvis findings: The pelvic bowel loops are nondilated and unremarkable. The urinary bladder is well distended and normal . Prostate gland and seminal vesicles appears normal. Interrogation of bone windows demonstrates no obvious bony abnormality. Sagittal and coronal reformatted images were obtained and reviewed which demonstrate no additional findings. Impression abdomen and pelvis : 1. No acute intra-abdominal or pelvic process is detected. PQRS Compliance Statement: One or more of the following individualized dose reduction techniques were utilized for this examination: 1. Automated exposure control 2. Adjustment of the mA and/or kV according to patient size 3. Use of iterative reconstruction technique Electronically signed by: Hollie Lucio MD (01/16/2018 9:00 PM) [facility]
[2018-01-16] MEDS ORDERED: ONDA4TAB12 PO (21:15)
[2018-01-16] MEDS ORDERED: SUCR1TAB35 PO (21:15)
[2018-01-16] MEDS ORDERED: FAMO-63 PO (21:15)
[2018-01-16] MEDS ORDERED: ONDANSETRON ODT 4 MG TAB.RAPDIS. ONE (21:45)
[2018-01-16] MEDS ORDERED: ONDANSETRON ODT 4 MG TAB.RAPDIS. PO ONE (22:00)
--- NOTE | 2018-01-17 10:36 | EKG ---
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
== END 2018-01-16 21:58 | disposition home or self-care (01) ==
LOC: ER 17:15
DX: K29.00 Acute gastritis without bleeding (principal); I10 Essential (primary) hypertension; K59.00 Constipation, unspecified; Z86.718 Personal history of other venous thrombosis and embolism; Z90.49 Acquired absence of other specified parts of digestive tract
CPT/HCPCS: 36415; 74177; 80053; 80307; 81001; 83690; 84484; 85007; 85025; 93005; 96361; 96374; 96375; 96376; 99285; J2405; J3010; J3490; J7030; Q0162; Q9967

== ENCOUNTER 2018-06-02 09:27 | Emergency (ER) | payer OTHER ==
[~2018-06-02] VITALS: Ht 175.3 cm; Wt 88.5 kg
[~2018-06-02 09:27] MED LIST changes: +AMLO5TAB10 PO; -AMLO5TAB7 PO; +FAMO-63 PO; +ONDA4TAB12 PO; +SUCR1TAB35 PO
[2018-06-02] MEDS ORDERED: ONDANSETRON PF 4 MG/2 ML VIAL. ONE (09:56)
[2018-06-02] MEDS ORDERED: ONDANSETRON PF 4 MG/2 ML VIAL. IV ONE ×2 (10:15)
[2018-06-02] MEDS ORDERED: FAMOTIDINE 20 MG/2 ML VIAL IVP ONE (10:15)
[2018-06-02] MEDS ORDERED: IV NORMAL SALINE 1000ML BAG 1,000 ML IV ONE (10:15)
[2018-06-02 10:25] LABS: BASO # 0.1 x10^3/uL (0.0-0.2); BASO % 1 % (0-3); EOS % 1 % (0-3); HEMATOCRIT 45.2 % (39.0-53.0); HEMOGLOBIN 15.6 g/dL (13.0-17.5); LYMPH # 2.2 x10^3/uL (1.0-4.8); LYMPH % 34 % (24-48); MEAN CORPUSCULAR HEMOGLOBIN 32 pg (25-35); MEAN CORPUSCULAR HGB CONC 35 g/dL (31-37); MEAN CORPUSCULAR VOLUME 93 fL (79-100); MONO # 0.4 x10^3/uL (0.0-1.1); MONO % 7 % (0-9); NEUT # 3.7 x10^3uL (1.8-7.7); NEUT % 58 % (31-73); PLATELET COUNT 244 x10^3/uL (140-400); RED BLOOD COUNT 4.86 x10^6/uL (4.30-5.70); RED CELL DISTRIBUTION WIDTH 13.3 % (11.5-14.5); WHITE BLOOD COUNT 6.5 x10^3/uL (4.0-11.0)
[2018-06-02 10:37] LABS: CALCIUM 9.4 mg/dL (8.5-10.1); CREATININE 1.1 mg/dL (0.7-1.3); GFR 95.8; POTASSIUM 3.1 mmol/L (3.5-5.1)
[2018-06-02 10:43] LABS: ALBUMIN/GLOBULIN RATIO 0.8 (1.0-1.7); TOTAL BILIRUBIN 0.3 mg/dL (0.2-1.0); TOTAL PROTEIN 9.2 g/dL (6.4-8.2)
[2018-06-02 12:08] LABS: BILIRUBIN,URINE NEGATIVE (NEG); CLARITY,URINE CLEAR; COLOR,URINE YELLOW; NITRITE,URINE NEGATIVE (NEG); PROTEIN,URINE NEGATIVE (NEG-TRACE); UROBILINOGEN,URINE 0.2 mg/dL (0.2 mg/dL)
[2018-06-02 12:21] LABS: BACTERIA,URINE 0 /HPF (0-FEW); RBC,URINE RARE /HPF (0-2); SQUAMOUS EPITHELIAL CELL,UR OCC /LPF
[2018-06-02 12:23] LABS: AMPHETAMINE/METHAMPHETAMINE NEG (NEG); BARBITURATES NEG (NEG); BENZODIAZEPINES NEG (NEG); CANNABINOIDS POS (NEG); COCAINE NEG (NEG); METHADONE NEG (NEG); OPIATES NEG (NEG); PHENCYCLIDINE NEG (NEG)
[2018-06-02] MEDS ORDERED: POTASSIUM CHLORIDE 20 MEQ TABLET.ER. PO ONE (12:30)
[2018-06-02] MEDS ORDERED: LABETALOL 20 MG/4 ML DISP.SYRIN. IVP ONE (13:30)
[2018-06-02] MEDS ORDERED: HALOPERIDOL LACTATE 5 MG/ML VIAL. IVP ONE (13:45)
[2018-06-02] MEDS ORDERED: SUCR1TAB35 PO (14:19)
[2018-06-02] MEDS ORDERED: ONDA4TAB12 PO (14:19)
--- NOTE | 2018-06-02 14:20 | PHYS DOC ---
Past Medical History Past Medical History: Hypertension, Other Additional Past Medical Histor: H. PYLORI Past Surgical History: Cholecystectomy Alcohol Use: Occasionally Drug Use: Marijuana Adult General Chief Complaint Chief Complaint: ABDOMINAL PAIN HPI HPI Patient is a 27 year old male with history of hypertension, cyclic vomiting mild one induced who presents to the ED today complaining of vomiting and generalized abdominal pain that began this morning. Patient denies any hematemesis, denies any diarrhea. He states he recently used marijuana. He states is followed up with [facility] [place] who diagnosed with H. pylori. Inquired who is following up with his H. pylori and if he is taking any medications. Patient states he does not remember. He is vomiting out loudly. Review of Systems Review of Systems Constitutional: Denies fever or chills [] Eyes: Denies change in visual acuity, redness, or eye pain [] HENT: Denies nasal congestion or sore throat [] Respiratory: Denies cough or shortness of breath [] Cardiovascular: No additional information not addressed in HPI [] GI: Reports abdominal pain, nausea and vomiting, denies bloody stools or diarrhea [] : Denies dysuria or hematuria [] Musculoskeletal: Denies back pain or joint pain [] Integument: Denies rash or skin lesions [] Neurologic: Denies headache, focal weakness or sensory changes [] All other systems were reviewed and found to be within normal limits, except as documented in this note. Current Medications Current Medications Current Medications Medications (Trade) Dose Ordered Sig/Sanaz Start Time Stop Time Status Last Admin Dose Admin Famotidine (Pepcid Vial) 20 mg 1X ONCE 06/02/18 10:15 06/02/18 10:16 DC 06/02/18 10:19 20 MG Haloperidol Lactate (Haldol Inj) 5 mg 1X ONCE 06/02/18 13:45 06/02/18 13:46 DC 06/02/18 13:38 5 MG Labetalol HCl (Normodyne Iv Push) 10 mg 1X ONCE 06/02/18 13:30 06/02/18 13:31 DC Ondansetron HCl (Zofran) 4 mg 1X ONCE 06/02/18 10:15 06/02/18 10:35 DC 06/02/18 10:17 4 MG Potassium Chloride (Klor-Con) 40 meq 1X ONCE 06/02/18 12:30 06/02/18 12:33 DC Sodium Chloride 1,000 ml @ 1,000 mls/hr 1X ONCE 06/02/18 10:15 06/02/18 11:14 DC 06/02/18 10:18 1,000 MLS/HR Allergies Allergies Allergies Coded Allergies Type Severity Reaction Last Updated Verified No Known Drug Allergies 02/25/17 No Physical Exam Physical Exam Constitutional: Well developed, well nourished, no acute distress, non-toxic appearance. [] HENT: Normocephalic, atraumatic, bilateral external ears normal, oropharynx moist, no oral exudates, nose normal. [] Eyes: PERRLA, EOMI, conjunctiva normal, no discharge. [] Neck: Normal range of motion, no tenderness, supple, no stridor. [] Cardiovascular:Heart rate regular rhythm, no murmur [] Lungs & Thorax: Bilateral breath sounds clear to auscultation [] Abdomen: Bowel sounds normal, soft, no tenderness, no masses, no pulsatile masses. [] Skin: Warm, dry, no erythema, no rash. [] Back: No tenderness, no CVA tenderness. [] Extremities: No tenderness, no cyanosis, no clubbing, ROM intact, no edema. [] Neurologic: Alert and oriented X 3, normal motor function, normal sensory function, no focal deficits noted. [] Psychologic: Affect normal, judgement normal, mood normal. [] Current Patient Data Vital Signs Vital Signs Date Time Temp Pulse Resp B/P (MAP) Pulse Ox O2 Delivery O2 Flow Rate FiO2 06/02/18 10:15 98.2 64 20 201/118 (145) 100 Room Air 98.2 Lab Values Laboratory Tests Test 06/02/18 10:00 06/02/18 11:57 White Blood Count 6.5 x10^3/uL (4.0-11.0) Red Blood Count 4.86 x10^6/uL (4.30-5.70) Hemoglobin 15.6 g/dL (13.0-17.5) Hematocrit 45.2 % (39.0-53.0) Mean Corpuscular Volume 93 fL (79-100) Mean Corpuscular Hemoglobin 32 pg (25-35) Mean Corpuscular Hemoglobin Concent 35 g/dL (31-37) Red Cell Distribution Width 13.3 % (11.5-14.5) Platelet Count 244 x10^3/uL (140-400) Neutrophils (%) (Auto) 58 % (31-73) Lymphocytes (%) (Auto) 34 % (24-48) Monocytes (%) (Auto) 7 % (0-9) Eosinophils (%) (Auto) 1 % (0-3) Basophils (%) (Auto) 1 % (0-3) Neutrophils # (Auto) 3.7 x10^3uL (1.8-7.7) Lymphocytes # (Auto) 2.2 x10^3/uL (1.0-4.8) Monocytes # (Auto) 0.4 x10^3/uL (0.0-1.1) Eosinophils # (Auto) 0.0 x10^3/uL (0.0-0.7) Basophils # (Auto) 0.1 x10^3/uL (0.0-0.2) Sodium Level 135 mmol/L (136-145) L Potassium Level 3.1 mmol/L (3.5-5.1) L Chloride Level 100 mmol/L (98-107) Carbon Dioxide Level 21 mmol/L (21-32) Anion Gap 14 (6-14) Blood Urea Nitrogen 10 mg/dL (8-26) Creatinine 1.1 mg/dL (0.7-1.3) Estimated GFR (Cockcroft-Gault) 95.8 BUN/Creatinine Ratio 9 (6-20) Glucose Level 126 mg/dL (70-99) H Calcium Level 9.4 mg/dL (8.5-10.1) Total Bilirubin 0.3 mg/dL (0.2-1.0) Aspartate Amino Transferase (AST) 22 U/L (15-37) Alanine Aminotransferase (ALT) 30 U/L (16-63) Alkaline Phosphatase 81 U/L (46-116) Total Protein 9.2 g/dL (6.4-8.2) H Albumin 4.0 g/dL (3.4-5.0) Albumin/Globulin Ratio 0.8 (1.0-1.7) L Lipase 201 U/L (73-393) Ethyl Alcohol Level < 10 mg/dL (0-10) Urine Collection Type Unknown Urine Color Yellow Urine Clarity Clear Urine pH 8.0 Urine Specific [place] 1.010 Urine Protein Negative mg/dL (NEG-TRACE) Urine Glucose (UA) Negative mg/dL (NEG) Urine Ketones (Stick) Negative mg/dL (NEG) Urine Blood Negative (NEG) Urine Nitrite Negative (NEG) Urine Bilirubin Negative (NEG) Urine Urobilinogen Dipstick 0.2 mg/dL (0.2 mg/dL) Urine Leukocyte Esterase Negative (NEG) Urine RBC Rare /HPF (0-2) Urine WBC 1-4 /HPF (0-4) Urine Squamous Epithelial Cells Occ /LPF Urine Bacteria 0 /HPF (0-FEW) Urine Opiates Screen Neg (NEG) Urine Methadone Screen Neg (NEG) Urine Barbiturates Neg (NEG) Urine Phencyclidine Screen Neg (NEG) Urine Amphetamine/Methamphetamine Neg (NEG) Urine Benzodiazepines Screen Neg (NEG) Urine Cocaine Screen Neg (NEG) Urine Cannabinoids Screen Pos (NEG) Urine Ethyl Alcohol Neg (NEG) Laboratory Tests 06/02/18 10:00 Laboratory Tests 06/02/18 10:00 EKG EKG [] Radiology/Procedures Radiology/Procedures [] Course & Med Decision Making Course & Med Decision Making Pertinent Labs and Imaging studies reviewed. (See chart for details) This is a 27 -year-old male 1 known to this ED for cyclic vomiting-marijuana- induced who presents to the ED today complaining of nausea vomiting and abdominal pain that began this morning. Urine analysis is noted for marijuana use. Labs are negative for any acute findings. Patient's symptoms are managing the ED. He was discharged back to home. Advised as usual to avoid using marijuana. Follow-up with his own PCP as well as GI. D/c on Mark and yudelka Holman Disclaimer Dragon Disclaimer This electronic medical record was generated, in whole or in part, using a voice recognition dictation system. Departure Departure Impression: Primary Impression: Cyclic vomiting syndrome Additional Impression: Marijuana use Disposition: HOME, SELF-CARE Condition: STABLE Referrals: NO PCP (PCP) [facility] PAINTER MD follow up in 1 week Patient Instructions: Cyclic Vomiting Syndrome, Marijuana Abuse and Chemical Dependency Additional Instructions: You were seen in the ED with cyclic vomiting this syndrome is typically induced by marijuana use, consider not using this drug. We provided you a computer bookkeeper, follow-up with them as an outpatient for H. pylori. Continue taking her medicines at home as previously prescribed by your doctor. Scripts Sucralfate (CARAFATE) 1 Gm Tablet 1 TAB PO QID, #120 TAB 1 Refill Prov: ABIMBOLA BRYSON APRN 06/02/18 Ondansetron (ONDANSETRON ODT) 4 Mg Tab.rapdis 1 TAB PO PRN Q6-8HRS, #16 TAB Prov: ABIMBOLA BRYSON APRN 06/02/18 Problem Qualifiers Primary Impression: Cyclic vomiting syndrome Vomiting Intractability: non-intractable Nausea presence: with nausea Qualified Codes: G43.A0 - Cyclical vomiting, not intractable ABIMBOLA BRYSON APRN Jun 02, 2018 14:20
[2018-06-02] MEDS ORDERED: LIDO:MAALOX 1:1 20 ML SINGLE DOSE. SWSW ONE (14:30)
[2018-06-02 14:45] VITALS: BP 205/114
== END 2018-06-02 14:56 | disposition home or self-care (01) ==
LOC: ER 09:27
DX: G43.A0 Cyclical vomiting, in migraine, not intractable (principal); R11.2 Nausea with vomiting, unspecified; R10.84 Generalized abdominal pain; I10 Essential (primary) hypertension; F12.10 Cannabis abuse, uncomplicated
CPT/HCPCS: 36415; 80053; 80307; 81001; 83690; 85025; 96361; 96374; 96375; 99283; G0480; J1630; J2405; J3490; J7030

== ENCOUNTER 2021-04-05 09:35 | Emergency (ER) | payer BC, OTHER ==
[~2021-04-05] VITALS: Ht 175.3 cm; Wt 90.9 kg
[~2021-04-05 09:35] MED LIST changes: +AMLO-186 PO; -AMLO5TAB10 PO; +DICY20TA PO; -DICY20TA3 PO; +LISI10TA16 PO; -LISI10TA2 PO
--- NOTE | 2021-04-05 09:42 | PHYS DOC ---
Past Medical History Past Medical History: Hypertension, Other Additional Past Medical Histor: H. PYLORI Past Surgical History: Cholecystectomy Smoking Status: Never Smoker Alcohol Use: Occasionally Drug Use: Marijuana General Adult EDM: Chief Complaint: ABDOMINAL PAIN HPI: HPI: Patient is a 30 year old male who presents with epigastric abdominal pain, nausea, vomiting and decreased bowel movements. He has not had a bowel movement in about 4 days, he is passing flatus. He reports no further nausea in the past 48 hours. He denies any history of hematemesis or coffee-ground emesis. He denies urinary symptoms. He denies lower abdominal pain. He has had a previous history of a cholecystectomy. He denies any history of bowel obstruction. He has a documented history of previous abdomen with hyperemesis syndrome. He reports that he is trying to stop smoking as much marijuana, though he still smokes marijuana couple times a week. He denies routine use of alcohol. He denies chest pain, dyspnea, dizziness. Syncope or weakness. He denies fevers or chills. Review of Systems: Review of Systems: Constitutional: Denies fever or chills. [] HENT: Denies nasal congestion or sore throat. [] Respiratory: Denies cough or shortness of breath. [] Cardiovascular: Denies chest pain or edema. [] GI: Epigastric and mid abdominal pain, nausea, vomiting. Constipation symptoms. Still passing flatus. Denies hematemesis. : Denies dysuria. [] Musculoskeletal: Denies back pain or joint pain. [] Integument: Denies rash or jaundice. Neurologic: Denies headache, focal weakness or sensory changes. [] Psychiatric: Denies depression or anxiety. [] Heart Score: C/O Chest Pain: No Risk Factors: Risk Factors: DM, Current or recent (<one month) smoker, HTN, HLP, family history of CAD, obesity. Risk Scores: Score 0 - 3: 2.5% MACE over next 6 weeks - Discharge Home Score 4 - 6: 20.3% MACE over next 6 weeks - Admit for Clinical Observation Score 7 - 10: 72.7% MACE over next 6 weeks - Early Invasive Strategies Allergies: Allergies: Allergies Coded Allergies Type Severity Reaction Last Updated Verified No Known Drug Allergies 02/25/17 No Physical Exam: PE: Constitutional: Well developed, well nourished, no acute distress, non-toxic appearance. [] HENT: Normocephalic, atraumatic, mucous membranes are moist Eyes: Conjunctiva normal, no discharge. No scleral icterus. Neck: Normal range of motion, no tenderness, supple, no stridor. [] Cardiovascular:Heart rate regular rhythm, +2 radial and +2 posterior tibial pulses bilaterally Lungs & Thorax: Bilateral breath sounds clear to auscultation [] Abdomen: Abdomen is soft, nondistended, normal bowel sounds, minimal epigastric tenderness to palpation. No rebound tenderness, minimal voluntary guarding. No lower abdominal tenderness. No palpable masses organomegaly. No palpable pulsatile mass. No CVA tenderness. No evidence of abdominal or flank trauma or injury, no flank or abdominal ecchymoses noted Skin: Warm, dry, no erythema, no rash. No jaundice. Back: No tenderness, no CVA tenderness. [] Extremities: No tenderness, no cyanosis, no clubbing, ROM intact, no edema. No calf tenderness. Neurologic: Alert and oriented X 3, normal motor function, normal sensory function, no focal deficits noted. [] Psychologic: Affect normal, judgement normal, mood normal. He is pleasant and cooperative. EKG: EKG: [] Radiology/Procedures: Radiology/Procedures: IMAGING REPORT Signed PATIENT: BRISA DONAHUE ACCOUNT: [id number] : 1990 LOCATION: ER AGE: 30 SEX: M EXAM STATUS: PRE ER ORD. PHYSICIAN: RUBINA YOUNG DO REASON: abd pain, n/v PROCEDURE: CT ABD PELV W/ IV CONTRST ONLY Study: CT abdomen/pelvis with intravenous contrast Indication: Abdominal pain. Nausea and vomiting. Comparison: Most recently on 01/16/2018 Technique: Helical CT imaging performed of the abdomen and pelvis after the intravenous administration of 75 cc Omnipaque 300 contrast. Sagittal and coronal reformats were obtained. One or more of the following individualized dose reduction techniques were utilized for this examination: 1. Automated exposure control 2. Adjustment of the mA and/or kV according to patient size 3. Use of iterative reconstruction technique. Findings: No significant abnormality at the lower chest. Mild fatty infiltration along the falciform ligament and gallbladder fossa. Surgically absent gallbladder. Unremarkable biliary tree, pancreas, spleen and adrenal glands. Symmetric renal parenchymal enhancement no hydronephrosis. Normal bladder wall thickness and size of the prostate. Mild volume colonic stool burden. No localized colonic wall thickening or pericolonic inflammation. Unremarkable appendix. Within normal limits course and caliber of small bowel. Unremarkable stomach. No major vascular abnormality. Lymph nodes are within normal limits for size. No free fluid or pneumoperitoneum. Variant posterior element anatomy on the left at L5. Intrinsically narrowed lumb ar canal mainly from L2-L3 through L4-L5. No acute or aggressive osseous process. Impression: No acute abnormality identified throughout the abdomen or pelvis. No significant change from 01/16/2018 comparison. Electronically signed by: MONIQUE BAKER MD (04/05/2021 10:55 AM) [facility] DICTATED and SIGNED BY: MONIQUE BAKER MD DATE: 04/05/21 [id number] Course & Med Decision Making: Course & Med Decision Making Pertinent Labs and Imaging studies reviewed. (See chart for details) The patient is given IV fluids, IV Zofran and IV morphine. He is resting c omfortably. He is tolerating oral fluids well. He has a benign, nonsurgical abdominal exam. Imaging studies and laboratory evaluation are unremarkable for any acute life-threatening or surgical process. I discussed the findings, differential diagnosis and plan of care with him. I recommended he eat a bland diet, drink plenty of fluids, avoid spicy, greasy foods. I recommend cessation of marijuana use. I recommend cessation of tobacco use and alcohol use as well. He is given information to establish care with a primary care physician. Strict return precautions are given. He verbalizes understanding. He is discharged in stable condition. Manda Disclaimer: Manda Disclaimer: This electronic medical record was generated, in whole or in part, using a voice recognition dictation system. Departure Departure Impression: Primary Impression: Epigastric abdominal pain Additional Impression: Nausea and vomiting Qualified Codes: R11.2 - Nausea with vomiting, unspecified Disposition: 01 HOME / SELF CARE / HOMELESS Condition: STABLE Referrals: NO PCP (PCP) Patient Instructions: Abdominal Pain (Nonspecific), Gastritis, Adult, Nausea and Vomiting Additional Instructions: Use the nausea medicine as needed/as directed. You may take [id number] stool softeners to help with constipation symptoms. Please avoid use of marijuana, avoid use of alcohol. Eat a bland diet, drink plenty of fluids. Please contact your primary care physician for follow-up. Return to the ER immediately for more severe pain, uncontrolled vomiting, dehydration, temperature 100.4 or higher, vomiting blood or any other concerns you might have. Scripts Ondansetron Hcl (ONDANSETRON HCL) 4 Mg Tablet 1 TAB PO PRN Q6HRS for vomiting, #20 TAB 1 Refill Prov: RUBINA YOUNG DO 04/05/21 Omeprazole (OMEPRAZOLE) 20 Mg Tablet. 1 TAB PO DAILY, #30 TAB 1 Refill Prov: RUBINA YOUNG DO 04/05/21 RUBINA YOUNG DO Apr 05, 2021 09:42
[2021-04-05] MEDS ORDERED: ONDANSETRON PF 4 MG/2 ML VIAL. IVP ONE (10:00)
[2021-04-05] MEDS ORDERED: MORPHINE SULFATE 4 MG/ML INJ. IVP ONE (10:00)
[2021-04-05] MEDS ORDERED: IV NORMAL SALINE 1000ML BAG 1,000 ML IV ONE (10:00)
[2021-04-05 10:14] LABS: BASO # 0.1 x10^3/uL (0.0-0.2); BASO % 1 % (0-3); EOS % 0 % (0-3); HEMATOCRIT 51.8 % (39.0-53.0); HEMOGLOBIN 18.1 g/dL (13.0-17.5); LYMPH # 1.6 x10^3/uL (1.0-4.8); LYMPH % 19 % (24-48); MEAN CORPUSCULAR HEMOGLOBIN 33 pg (25-35); MEAN CORPUSCULAR HGB CONC 35 g/dL (31-37); MEAN CORPUSCULAR VOLUME 94 fL (79-100); MONO # 0.7 x10^3/uL (0.0-1.1); MONO % 8 % (0-9); NEUT # 6.1 x10^3/uL (1.8-7.7); NEUT % 72 % (31-73); PLATELET COUNT 267 x10^3/uL (140-400); RED BLOOD COUNT 5.52 x10^6/uL (4.30-5.70); WHITE BLOOD COUNT 8.5 x10^3/uL (4.0-11.0)
[2021-04-05 10:26] LABS: CALCIUM 9.5 mg/dL (8.5-10.1); CREATININE 1.1 mg/dL (0.7-1.3); GFR 93.9; POTASSIUM 3.8 mmol/L (3.5-5.1)
[2021-04-05] MEDS ORDERED: IOHEXOL 300 MG/ML 100ML VIAL. IV ONE (10:30)
[2021-04-05 10:40] LABS: ALBUMIN 4.3 g/dL (3.4-5.0); ALBUMIN/GLOBULIN RATIO 0.9 (1.0-1.7); TOTAL BILIRUBIN 0.8 mg/dL (0.2-1.0); TOTAL PROTEIN 9.3 g/dL (6.4-8.2)
[2021-04-05] MEDS ORDERED: CONTRAST GIVEN. MC PRN (10:45)
[2021-04-05 10:49] LABS: PLT ESTIMATE ADEQUATE (ADEQUATE)
--- NOTE | 2021-04-05 10:57 | RAD ---
Study: CT abdomen/pelvis with intravenous contrast Indication: Abdominal pain. Nausea and vomiting. Comparison: Most recently on 01/16/2018 Technique: Helical CT imaging performed of the abdomen and pelvis after the intravenous administratio n of 75 cc Omnipaque 300 contrast. Sagittal and coronal reformats were obtained. One or more of the following individualized dose reduction techniques were utilized for this examinat ion: 1. Automated exposure control 2. Adjustment of the mA and/or kV according to patient size 3. Use of iterative reconstruction technique. Findings: No significant abnormality at the lower chest. Mild fatty infiltration along the falciform ligament and gallbladder fossa. Surgically absent gallbla dder. Unremarkable biliary tree, pancreas, spleen and adrenal glands. Symmetric renal parenchymal enh ancement no hydronephrosis. Normal bladder wall thickness and size of the prostate. Mild volume colonic stool burden. No localized colonic wall thickening or pericolonic inflammation. U nremarkable appendix. Within normal limits course and caliber of small bowel. Unremarkable stomach. No major vascular abnormality. Lymph nodes are within normal limits for size. No free fluid or pneumo peritoneum. Variant posterior element anatomy on the left at L5. Intrinsically narrowed lumbar canal mainly from L2-L3 through L4-L5. No acute or aggressive osseous process. Impression: No acute abnormality identified throughout the abdomen or pelvis. No significant change from 01/17/20 18 comparison. Electronically signed by: MONIQUE BAKER MD (04/05/2021 10:55 AM) [facility]
[2021-04-05 11:15] LABS: BILIRUBIN,URINE NEGATIVE (NEG); CLARITY,URINE CLEAR; COLOR,URINE YELLOW; NITRITE,URINE NEGATIVE (NEG); PH,URINE 6.5 (<5.0-8.0); PROTEIN,URINE 30 mg/dL (NEG-TRACE); UROBILINOGEN,URINE 0.2 mg/dL (0.2 mg/dL)
[2021-04-05 11:27] LABS: BACTERIA,URINE FEW /HPF (0-FEW); RBC,URINE OCC /HPF (0-2)
[2021-04-05 13:08] VITALS: BP 159/80
[2021-04-05] MEDS ORDERED: ONDA-84 PO (13:22)
[2021-04-05] MEDS ORDERED: OMEP20TA8 PO (13:22)
== END 2021-04-05 13:44 | disposition home or self-care (01) ==
LOC: ER 09:35
DX: R10.13 Epigastric pain (principal); R11.2 Nausea with vomiting, unspecified; I10 Essential (primary) hypertension; Z90.49 Acquired absence of other specified parts of digestive tract
CPT/HCPCS: 36415; 74177; 80053; 81001; 83605; 83690; 85025; 96361; 96374; 96375; 99285; J2270; J2405; J7030; Q9967